=== PATIENT | female | born 1970 | race African-American/Black ===

== ENCOUNTER 2016-12-09 08:33 | Observation (INO) ==
--- NOTE | 2016-12-09 11:00 | EKG Report ---
Test Performed on : 12/09/2016 10:46:56 AM Test Reason : tachycardia Blood Pressure : / mmHG Vent. Rate : 055 BPM Atrial Rate : 055 BPM P-R Int : 120 ms QRS Dur : 080 ms QT Int : 424 ms P-R-T Axes : 039 -01 002 degrees QTc Int : 405 ms Sinus bradycardia. Low voltage QRS Nonspecific T wave abnormality III RSR' or QR pattern in V1 suggests right ventricular conduction delay Nonspecific ST and T wave abnormality precordial leads Borderline ECG No previous ECGs available Confirmed by Tom Traore DO ([id number]) on 12/10/2016 12:34:41 PM
[2016-12-09 11:18] LABS: MANUAL DIFF NEEDED? NO
[2016-12-09 11:19] LABS: BASO% 0.3 % (0.0-0.8); EOS# 0.04 X1000 (0.0-0.7); EOS% 1.2 % (0.0-10.0); HEMATOCRIT 40.9 % (37.0-47.0); HEMOGLOBIN 13.5 g/dL (12.0-16.0); LYMPH# 1.21 X1000 (1.2-3.4); LYMPH% 37.5 % (20.5-51.1); MCH 26.6 PG (27-31); MCV 80.5 FL (81-99); MONO# 0.43 X1000 (0.11-0.59); MONO% 13.3 % (1.7-9.3); MPV 11.9 FL (7.4-10.4); NEUT% 47.7 % (42.2-75.2); PLT 219 X1000 (130-400); RBC 5.08 XMIL (4.2-5.4)
[2016-12-09 11:39] LABS: AGAP 10; ALBUMIN 4.6 g/dL (3.5-5.0); ALKALINE PHOSPHATASE 74 U/L (32-104); BUN 15 mg/dL (8-22); CALCIUM 10.1 mg/dL (8.8-10.2); CHLORIDE 99 mmol/L (98-107); COSMO 273; GOT 21 U/L (10-30); GPT 12 U/L (10-36); MAGNESIUM 1.8 mg/dL (1.5-2.7); POTASSIUM 3.9 mmol/L (3.5-5.1); SODIUM 137 mmol/L (136-145); TCO2 28 mmol/L (25-35); TOTAL BILIRUBIN 0.26 mg/dL (0.20-1.00); TOTAL PROTEIN 8.1 g/dL (6.3-8.3)
--- NOTE | 2016-12-09 11:55 | CONSULTATION ---
DATE OF CONSULTATION: 12/09/2016 INDICATIONS: Palpitations. HISTORY OF PRESENT ILLNESS: Ms. Barba is a 46-year-old, black female with a history of hypertension, recently beginning treatment around 1 week ago. She was apparently in her usual state of health this morning when she was at work. She was scrubbed in to an operation and apparently began experiencing some extreme heart racing symptoms. This persisted for around 10-15 minutes. She was not able to be hooked up to any sort of a telemetry device. We do not have heart rhythm readings from that time. She did not have any syncope occurring at that time, but apparently felt very lightheaded. No overt chest pain. She apparently had an evaluation at [facility] in June of this year for syncope at which time she had a large pericardial effusion with no evidence of tamponade physiology. Otherwise was relatively unremarkable evaluation. She was suppose to followup with Cardiology but never did at that time. PAST MEDICAL HISTORY: 1. Significant for hypertension. Recently undergoing medication titrations over the last week. 2. Apparent chronic episodic headaches. SOCIAL HISTORY: No tobacco use. She is . is present at the bedside. She works as an OR [employer]. FAMILY HISTORY: Significant for hypertension. No history of early cardiac sudden . REVIEW OF SYSTEMS: A 10 system review of systems is negative except for those mentioned in HPI. PHYSICAL EXAMINATION: Vital Signs: Afebrile, heart rate 63, blood pressure 136/85. General: She is in no acute distress. She is very pleasant. HEENT: Oropharynx is moist. Normal dentition. Eye examination shows pink conjunctivae. White sclerae. Neck: Examination shows no obvious thyromegaly or thyroid tenderness. Cardiovascular: She is in a regular rate and rhythm. No murmurs. No S3. She has no lower extremity edema. She has no carotid bruits. Chest: Clear bilaterally. No increased work of breathing. Abdomen: Soft, nontender, nondistended. No obvious organomegaly. Skin: Warm and dry throughout. Neurological: She is moving all extremities well. No lateralizing deficits. Psychiatric: Alert, oriented, pleasant. Normal mood and affect. PERTINENT DATA: EKG shows sinus bradycardia at 55 beats per minute. Normal QT interval. Normal KS interval. No signs of ischemia or infarct. Initial laboratory data shows an essentially normal CBC with the exception of a reduced white count 3.2 which was 2.7 in November. The hematocrit is normal at 41 and platelet count is 219,000. ASSESSMENT: Palpitations. PLAN: I will watch her overnight on telemetry. Echocardiogram is currently pending. We will evaluate for re-accumulation or persistence of the pericardial effusion. She currently has laboratory pending including thyroid studies, CRP and a sedimentation rate. Troponin has also been ordered as well. If her telemetry does not show any significant arrhythmias, we will likely arrange for an outpatient 30-day DIEGO. cc: MD Silverio Hawkins MD
--- NOTE | 2016-12-09 13:07 | Diag Imaging Result Doc PS360 ---
EXAM: HEAD W/WO CONTRAST - 12/09/2016 HISTORY: headaches TECHNIQUE: Without and with intravenous contrast. Dose reduction protocol. COMPARISON: None. FINDINGS: There is no evidence of intracranial hemorrhage, mass effect, or midline shift. The ventricular system is mildly prominent which is nonspecific and may be within the range of normal variation. There is no infarct identified. There is no abnormal enhancement identified. IMPRESSION: Nonspecific mild prominence of ventricular system, which may be within the range of normal variation. No other visible intracranial abnormality. If other occult abnormality is strongly suspected clinically, MRI could be considered. Electronically signed by Giorgio Dee 12/09/2016 1:05 PM
--- NOTE | 2016-12-09 16:37 | HISTORY AND PHYSICAL ---
HISTORY OF PRESENT ILLNESS: I was called from the OR. I was scrubbed and doing surgery, she is my patient 46-year-old black female and beginning treatment around we had begun treatment for hypertension about a week ago but she was scrubbed in for surgery and developed extreme heart racing symptoms they felt heart rate got up to 180 or 200 and persisted for 10-15 minutes. She was not able to be hooked up to monitor and they did do an EKG and she is back to normal rhythm around 80. We did recently start her on antihypertensive medications. PAST MEDICAL HISTORY: 1. History for hypertension. 2. She had a workup in [place] for syncope June of this last year. 3. Apparent chronic episodic headaches. SOCIAL HISTORY: No tobacco use or alcohol. FAMILY HISTORY: Significant for hypertension. REVIEW OF SYSTEMS: General: No weight gain, loss. No fever or chills. HEENT: Unremarkable. Respiratory: No increased work of breathing or dyspnea. Cardiovascular: No chest pain or tachy palpitation. GI: Unremarkable. : Unremarkable. Musculoskeletal/Neurologic: No significant complaints. Endocrinologic/Hematologic: No significant history. EXAM: Vital signs: She remains afebrile, pulse 78, respirations 16, blood pressure 126/94. Lungs: Are clear in all lung soto. Cardiovascular: Regular rhythm and rate without murmur or S3. Abdomen: Soft. Skin: Warm and dry. Weight 175 pounds. LAB: White count 3230, hematocrit 40, platelet count 219,000. Sodium 137, potassium 3.9, chloride 99, bicarb 28, BUN 15, creatinine 0.9. Liver functions unremarkable. TSH 1.4. T4 6.8. CT of the head unremarkable. PLAN: We put her in observation, appreciate Dr. Jareth Traore's evaluation. Plan to watch her overnight on telemetry. Echocardiogram pending. Evaluate for reaccumulation of persistence pericardial effusion currently has laboratory pending, troponin has also been ordered, telemetry has not showed any significant arrhythmias so will watch and see how we do tonight. Review of her CBC unremarkable. Chemistries unremarkable. Thyroid looks good. C-reactive protein is low. cc: Silverio Valenzuela MD
--- NOTE | 2016-12-09 18:33 | ECHO REPORT ---
ORDER DATE: 12/09/2016 INTERPRETING PHYSICIAN: Dr. Morris REQUESTING PHYSICIAN: Dr. Silverio Valenzuela, Dr. Jareth Traore CLINICAL INDICATIONS: Evaluation of pericardial effusion. This is a limited study. This study shows: 1. Normal left ventricular systolic function. 2. The right ventricle appears to be of normal size and function. 3. There is a small to moderate sized pericardial effusion. On the parasternal views, it appears to be on the small size, however, on the apical views, it appears to be in the moderate size. 4. The inferior vena cava is not dilated and it shows normal respiratory collapse. 5. The cardiac valves, aortic and mitral, appear to be grossly normal. There were not specifically interrogated. Color flow mapping of these binta is grossly within normal range. Actually, the Doppler of the mitral inflow and the Doppler of the left ventricular outflow tract is unremarkable. 6. There is no evidence of any significant degree of aortic or mitral regurgitation. 7. The tricuspid valve is grossly unremarkable. 8. The pulmonic valve also appears to be grossly unremarkable. M-MODE MEASUREMENTS: Right ventricle: 2.1 cm. Left ventricle end diastole: 4.4 cm. Left ventricle end systole: 2.9 cm. Posterior wall: 0.9 cm. Interventricular septum: 0.9 cm. Left atrium: 3.8 cm. Aortic root: cm. IMPRESSION: In summary, this study showed the presence of a small to moderate sized pericardial effusion without echocardiographic indication of tamponade. Clinical correlation recommended. cc: MD Stephanie Vu PA Allen J. Schmidt, MD
[2016-12-09] MEDS: TYLENOL PO PRN (20:06)
[2016-12-10] MEDS: TYLENOL PO PRN ×2 (08:06→11:57)
[2016-12-10 11:36] VITALS: BP 108/64
--- NOTE | 2016-12-10 17:07 | DISCHARGE SUMMARY ---
ADMISSION DATE: 12/09/2016 DISCHARGE DATE: 12/10/2016 HOSPITAL COURSE: Ms. Barba, I put her in yesterday. 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 They recorded it at times up to 180 even 200 for a couple minutes. They did not get a recording of that monitor. She has remained in normal sinus rhythm. I had started her on blood pressure medicine the week before for complaints of ambulatory blood pressures and headaches. We held this medicine. Blood pressures looked good. In fact, blood pressures remained kind of on the low side, low 100s. All of her lab was unremarkable. Her thyroid T4 was 6.8, TSH 1.4. B12 looked good. Troponin CPK unremarkable. Kidney function: Serum creatinine 0.9. Liver functions looked good, and I really saw no issues with any lab work, and she said she had still a little bit of a headache but wanted to go home. We will set her up to see cardiology and probably get an event monitor for 30 days. Keep her off of her blood pressure medicine. I am going to have her stop her lisinopril and hydrochlorothiazide and stop her amlodipine. cc: Silveroi Valenzuela MD
== END 2016-12-10 14:13 | disposition home or self-care (01) ==
LOC: 3N → 4N 08:33
PROVIDERS: ADMIT Emergency Medicine; ATTEND Emergency Medicine